=== PATIENT | female | born 1965 | race Caucasian/White ===

== ENCOUNTER 2020-07-13 09:55 | Outpatient (CLI) | payer MEDICAID, SELFPAY ==
[2020-07-14 13:46] LABS: COVID-19 RT-PCR UVMMC Result Negative (Negative)
== END 2020-07-13 09:56 | disposition home or self-care (01) ==
DX: Z20.822 Contact with and (suspected) exposure to COVID-19 (principal)
CPT/HCPCS: U0003

== ENCOUNTER 2021-04-09 09:40 | Outpatient (CLI) | payer MEDICAID, SELFPAY ==
[2021-04-09 15:19] LABS: Abs Immature Grans 0.01 10^3/uL (0.0-0.06); Absolute Basophil Count 0.04 10^3/uL (0.0-0.2); Absolute Eosinophil Count 0.17 10^3/uL (0.0-0.7); Absolute Lymphocyte Count 1.33 10^3/uL (1.2-3.4); Absolute Monocyte Count 0.54 10^3/uL (0.1-0.8); Absolute Neutrophil Count 3.28 10^3/uL (1.2-6.7); Basophils % 0.7; Eosinophils % 3.2; HCT 42.5 % (36.0-46.0); HGB 13.9 g/dL (11.2-15.7); Immature Grans % 0.2; Lymphocytes % 24.8; MCH 29.1 pg (27.0-33.0); MCHC 32.7 % (32.0-36.0); MCV 89.1 fL (80-95); Monocytes % 10.1; Nucleated RBC 0 %; Platelet Count 186 10^3/uL (130-400); RBC 4.77 10^6/uL (3.93-5.22); RDW 13.5 % (11.7-14.6); RDW-SD 44.4 fL; WBC 5.37 10^3/uL (4.4-10.8)
[2021-04-09 15:47] LABS: ESR 3 mm/hr (0-30)
== END 2021-04-09 09:41 | disposition home or self-care (01) ==
LOC: LBO 04-15 09:42
PROVIDERS: Visit Provider Family Medicine
DX: B02.9 Zoster without complications (principal)
CPT/HCPCS: 36415; 85652; 87040; 85025